=== PATIENT | male | born 1995 | race Caucasian/White ===

== ENCOUNTER 2020-01-22 23:24 | Emergency (ER) | payer SELFPAY ==
[~2020-01-22] VITALS: Ht 177.8 cm; Wt 68.0 kg
[2020-01-22 23:51] VITALS: BP_SYST 159
--- NOTE | 2020-01-23 00:59 | NUR ---
Patient to ER bed 04 to gown for evaluation. Side rails up. Report given to Taz STALLWORTH.
[2020-01-23] MEDS ORDERED: LIDOCAINE 1% 10 MG/ML, 20 ML MDV INJ ONE (01:00)
[2020-01-23] MEDS ORDERED: DIPH-TET-PERTUS Vaccine 0.5 ML VIAL (ADACEL) I.M. ONE (01:15)
--- NOTE | 2020-01-23 01:30 | NUR ---
PT BIB FAMILY TO ED NEEDING evaluation of a laceration to the right pink finger today. The pain exacerbates with movement. Reports some numbness to the finger. The patient reports she was slicing meat on a grill when he slipped and cut his right pinky finger. He further reports a laceration to the right lower leg when he fell
[2020-01-23] MEDS ORDERED: KETOROLAC TROMETHAMINE 60 MG/2 ML VIAL IM ONE (02:30)
--- NOTE | 2020-01-23 02:30 | NUR ---
DR. SMITH BEDSIDE FOR LAC REPAIR, WELL TOLERATED
[2020-01-23] MEDS ORDERED: NEOMY SULF/BACITRAC ZN/POLY 28 GM OINT..GM. TP ONE (03:00)
--- NOTE | 2020-01-23 03:00 | NUR ---
Procedure well tolerated
[2020-01-23 03:15] VITALS: BP_SYST 138
--- NOTE | 2020-01-23 03:15 | NUR ---
Patient given written and verbal discharge instructions and verbalizes understanding. ER MD discussed with patient the results and treatment provided. Patient in stable condition. ID arm band removed. Rx of Bactrim and Motrin given. Patient educated on pain management and to follow up with PMD. Pain Scale 0/10 Opportunity for questions provided and answered. Medication side effect fact sheet provided.
== END 2020-01-23 03:15 | disposition home or self-care (01) ==
LOC: SED 23:24
DX: S61.216A Laceration without foreign body of right little finger without damage to nail, initial encounter (principal); S81.811A Laceration without foreign body, right lower leg, initial encounter; R03.0 Elevated blood-pressure reading, without diagnosis of hypertension; W45.8XXA Other foreign body or object entering through skin, initial encounter; Y93.89 Activity, other specified; Y92.89 Other specified places as the place of occurrence of the external cause; Y99.8 Other external cause status
CPT/HCPCS: 12002; 73140; 90471; 90715; 96372; 99284; J1885; J2001